=== PATIENT | female | born 1935 | race Caucasian/White ===

== ENCOUNTER 2017-08-24 09:29 | Inpatient (IN) ==
--- NOTE | 2017-08-24 12:52 | Diag Imaging Result Doc PS360 ---
ABDOMEN FLAT/UPRIGHT - 08/24/2017 INDICATION: abdominal pain, N V, cecal mass TECHNIQUE: Two views COMPARISON: Recent CT and PET scan FINDINGS: There are some borderline gaseous distended loops of small bowel in the mid abdomen measuring up to about 3 cm. There is some stool and a little bit of gas throughout the colon which otherwise appears normal. No free air. IMPRESSION: Abnormal but nonspecific small bowel bowel gas pattern. Similar to prior CTs. Electronically signed by Rodger Hill 08/24/2017 12:50 PM
--- NOTE | 2017-08-24 13:33 | PROVIDER DOCUMENTATION ---
This chart was entered by Gloria Mcconnell Scribe, acting as scribe for Luis Preciado MD. HPI-General Adult - General Chief Complaint: Abdominal Pain Stated Complaint: VOMITING Time Seen by Provider: 08/24/17 11:06 Source: family Allergies/Adverse Reactions: Patient Allergies Allergy/AdvReac Type Severity Reaction Status Date / Time propoxyphene HCl * Allergy Intermediate agitation Verified 08/24/17 11:51 [From Darvon] ramipril [From Altace] Allergy Intermediate HIVES Verified 08/24/17 11:51 Home Medications: Home Medication List Medication Instructions Recorded Confirmed Last Taken Type Aspirin 2 tab PO DAILY 06/11/15 08/24/17 08/17/17 08:00 History Furosemide [Lasix] 40 mg PO DAILY 06/11/15 08/24/17 08/24/17 08:00 History Irbesartan 150 mg PO HS 06/11/15 08/24/17 08/23/17 20:00 History Levothyroxine Sodium 75 mg PO DAILY 06/11/15 08/24/17 08/24/17 08:00 History Metoprolol Succinate 100 mg PO DAILY 06/11/15 08/24/17 08/24/17 08:00 History Mv,Calcium,Min/Iron/Folic/Vitk 1 tab PO DAILY 06/11/15 08/24/17 08/17/17 08:00 History [Multi For Her Tablet] [place]-3 Fatty Acids/Fish Oil [Fish 1 cap PO HS 06/11/15 08/24/17 08/17/17 20:00 History Oil 1,000 mg Softgel] SIMVAstatin [Zocor] 1 tab PO HS 06/11/15 08/24/17 08/23/17 20:00 History Hydrocodone/Acetaminophen 5 mg PO Q6HR PRN 08/24/17 08/24/17 08/24/17 08:00 History [Hydrocodon-Acetaminophen 5-325] Insulin NPH Hum/Reg Insulin Hm 16 unit SUBQ BID 08/24/17 08/24/17 08/24/17 08: 00 History [Relion Novolin 70-30 Vial] Iron Fum,Ps Cmp/Vit C/Niacin 3 mg PO DAILY 08/24/17 08/24/17 08/23/17 20:00 History [Integra Capsule] Omeprazole [Omeprazole] 40 mg PO DAILY PRN PRN 08/24/17 08/24/17 08/24/17 08:00 History Ondansetron Odt [Zofran Odt] 4 mg PO Q6HR 08/24/17 08/24/17 08/23/17 20:00 History Ranitidine [Zantac] 150 mg PO HS 08/24/17 08/24/17 08/23/17 20:00 History - History of Present Illness -Gen Adult Nature of Presenting Problems: Patient is an 82 year old female who presents in the ED with family with complaints of nausea/vomiting. Family states patient is under an oncologist's care due to a recently found mass near the patient's appendix, and states patient is scheduled for surgery on 09/02/17 but has to be evaluated by a pediatric ophthalmologist prior to having surgery (appointment with pediatric ophthalmologist on 08/29/17) . Family also states patient began having nausea/vomiting at 3:00 a.m. this morning, and states patient has continued to have nausea/vomiting despite taking Zofran. Family reports patient has also been constipated, last having a bowel movement on Tuesday, and reports patient takes Miralax daily but was given milk of magnesia last night and still has not had a bowel movement. Patient is also taking [place] frequently. Family denies patient having bloody vomit, diarrhea, and any other symptoms. Location of Pain/Injury: reports: abdomen Pain Radiation: reports: no radiation Quality of Pain: reports: aching Severity: reports: mild, moderate Onset/Duration: reports: abrupt, this morning Timing: reports: still present Context/Activities at Onset: reports: none Modifying Factors: improves with: nothing Associated Symptoms: reports: constipation, nausea, vomiting Similar Symptoms Previously?: Yes Recently seen or treated by another doctor?: Yes Review of Systems - Adult - REVIEW OF SYSTEMS - ADULT ROS:: ROS per family Constitutional: reports: no symptoms reported Eyes: reports: no symptoms reported Ears, Nose, Mouth & Throat: reports: no symptoms reported Cardiovascular: reports: no symptoms reported Respiratory: reports: no symptoms reported Gastrointestinal: reports: see HPI, abdominal pain, constipation, nausea, vomiting Genitourinary: reports: no symptoms reported Musculoskeletal: reports: no symptoms reported Integumentary: reports: no symptoms reported Neurological: reports: no symptoms reported Psychiatric: reports: no symptoms reported Endocrine: reports: no symptoms reported Hematologic/Lymphatic: reports: no symptoms reported Allergic/Immunologic: reports: no symptoms reported All Other Systems: Reviewed and Negative Past History - Adult - PAST MEDICAL HISTORY-ADULT Review of Records: reports: Nursing Assessment Review, Medications Reviewed Major Childhood Illnesses: reports: denies history Cardiovascular: reports: CHF, HTN, hyperlipidemia Respiratory: reports: denies history Gastrointestinal: reports: denies history Obstetrical/Gynecological: reports: denies history Genitourinary: reports: denies history Musculoskeletal: reports: denies history Neurological: reports: denies history Endocrine/Immune: reports: Diabetes, thyroid disorder Other Conditions: reports: denies history - PRIOR SURGERIES/PROCEDURES Surgical/Procedure History: reports: CABG - IMMUNIZATION STATUS Childhood Immunizations: See Nurse Assessment Flu Vaccine: See Nurse Assessment - FAMILY HISTORY Family History: reviewed, not pertinent - SOCIAL HISTORY Smoking: denies, non-smoker Substance Use: none/never Alcohol Use Frequency: never Living Situation: family Physical Exam-General - PHYSICAL EXAM-ADULT Initial Vital Signs Reviewed: Yes - CONSTITUTIONAL General Appearance: alert, no apparent distress - EYES Eyes: PERRL/EOMI, pink conjunctivae - HEAD, EARS, NOSE, MOUTH & THROAT HENMT: normocephalic/atraumatic - NECK Neck: full range of motion, supple - RESPIRATORY Respiratory: no pleuratic chest pain, no respiratory distress, no accessory muscle use - CARDIOVASCULAR Cardiovascular: no edema, no JVD - GASTROINTESTINAL (ABDOMEN) Abdominal Exam: no organomegaly, no pulsatile mass - LYMPHATIC Lymphatic: no adenopathy - MUSCULOSKELETAL Back Exam: normal inspection Extremity: normal range of motion, non-tender - SKIN Integumentary: normal color, normal turgor, warm/dry - NEUROLOGIC Neurologic: no motor/sensory deficits - PSYCHIATRIC Psych/Mental Status: normal mood/affect Progress - PLAN OF CARE/RESULTS Progress/Plan/Lab Results: Vital Signs - 8 hr 08/24/17 09:32 Temperature 97.9 F Pulse Rate 71 Respiratory Rate 16 Blood Pressure 146/65 O2 Sat by Pulse Oximetry 95 - XRAY 1 Impression: Abnormal (Abnormal but nonspecific small bowel gas pattern. Similar to prior CTs.) Comparison with other Films: no changes - CONSULTS/PCP/HOSPITALIST Notification #1 *Consult/PCP/Hospitalist*: Dr. Marx Time Discussed: 11:50 Reason/Comments: requests flat/upright xray of abdomen Departure - Departure Date of Disposition Decision: 08/24/17 Time of Disposition Decision: 13:30 DIAGNOSIS: Nausea & vomiting, Cecal neoplasm Disposition: ADMITTED INPATIENT 09 Certified Medical Emergency: Emergent Condition: Stable Referrals and Follow-Ups: Bhavani Garza MD [Primary Care Provider] - - Critical Care Note This patient required my direct & personal management of CC.: No Attestation - Physician/ ABELARDO Attestation Patient care was provided by Advanced Practice Provider:: No The physician spent face to face time with patient:: Yes Advanced Practice Provider documentation review:: Supervising physician onsite and consulted in the evaluation and care of this patient. The physician did have a face to face encounter with the patient. This chart was documented by the indicated scribe, (Gloria Mcconnell Scribe) and accurately reflects the services I performed and decisions made by me, Luis Preciado MD, as attested by the provider's signature.
[2017-08-24 13:57] LABS: MANUAL DIFF NEEDED? NO
[2017-08-24 13:57] LABS: URINE CULTURE NEEDED? NO; URINE MICRO REVIEW NEEDED? NO; URINE SOURCE CLEAN CATCH
[2017-08-24 13:58] LABS: ALBUMIN 3.3 g/dL (3.5-5.0); TOTAL BILIRUBIN 0.45 mg/dL (0.20-1.00); TOTAL PROTEIN 6.6 g/dL (6.3-8.3)
[2017-08-24 14:05] LABS: BASO% 0.2 % (0.0-0.8); EOS# 0.01 X1000 (0.0-0.7); EOS% 0.1 % (0.0-10.0); HEMATOCRIT 35.8 % (37.0-47.0); HEMOGLOBIN 11.1 g/dL (12.0-16.0); IMM GRAN# 0.02 X1000 (0.0-0.04); IMM GRAN% 0.2 % (0.0-0.5); LYMPH# 2.17 X1000 (1.2-3.4); LYMPH% 17.8 % (20.5-51.1); MCV 90.4 FL (81-99); MONO# 0.82 X1000 (0.11-0.59); MONO% 6.7 % (1.7-9.3); MPV 9.8 FL (7.4-10.4); PLT 391 X1000 (130-400); RBC 3.96 XMIL (4.2-5.4)
[2017-08-24 14:10] LABS: BILIRUBIN URINE NEGATIVE (NEGATIVE); BLOOD URINE NEGATIVE (NEGATIVE); COLOR YELLOW; GLUCOSE URINE NEGATIVE (NEGATIVE); LEUKOCYTES URINE NEGATIVE (NEGATIVE); NITRITE URINE NEGATIVE (NEGATIVE); PH URINE 5.5; PROTEIN URINE TRACE mg/dL (NEGATIVE); SP GRAVITY URINE 1.019; TURBIDITY URINE CLEAR (CLEAR); UROBILINOGEN URINE NORMAL (NORMAL)
[2017-08-24 14:12] LABS: UR EPITHELIAL CELLS <10 /HPF (<10); URINE BACTERIA NEGATIVE /HPF; URINE RBC <10 /HPF (<10); URINE WBC <10 /HPF (<10)
[2017-08-24] MEDS ORDERED: ZOFRAN IV ONE (14:19)
[2017-08-24] MEDS ORDERED: NS 1,000 ML IV SCH (15:50)
--- NOTE | 2017-08-24 16:00 | Diag Imaging Result Doc PS360 ---
EXAM: CHEST-PORTABLE HISTORY: dyspnea TECHNIQUE: Portable AP upright COMPARISON: None. FINDINGS: Sternal wires are present. The lungs are well expanded. The heart is not enlarged. The vessels are not distended. No pneumonia. No pleural effusions identified. IMPRESSION: Negative chest. Electronically signed by Ray Abrams 08/24/2017 3:58 PM
[2017-08-24] MEDS ORDERED: NS 1,000 ML ONE (16:28)
--- NOTE | 2017-08-24 16:34 | Diag Imaging Result Doc PS360 ---
EXAM: CT ABDOMEN/PELVIS W/O CONTRAST HISTORY: known mass, worsening pain TECHNIQUE: CT abdomen and pelvis without contrast. Dose reduction protocol. COMPARISON: 08/05/2017 FINDINGS: Interval development of a tiny right-sided pleural effusion measuring 13 mm posteriorly and inferiorly in the midline. There is a tiny nodule in the left lung base similar to the prior study. No calcified gallstones or adjacent inflammation. Normal noncontrasted liver, spleen, and pancreas. Normal adrenal glands. There is cortical thinning to the kidneys. No renal stones. No hydronephrosis. No aortic aneurysm. Prominent atherosclerosis. Mild distention to the small bowel loops. There is stool in the proximal colon. There are prominent lymph nodes and inflammation at the ileocecal junction. The appendix remains distended although it is less pronounced than on the prior exam. There is equalized contents in the distal small bowel. The uterus is small. There are distal colonic diverticula. Urinary bladder is not distended. IMPRESSION: 1. Interval worsening in the small bowel dilatation with possible malignancy at the ileocecal junction. The appendix is dilated although it is less pronounced than on the prior exam. No abscess. Inflammation in the right lower quadrant with prominent mesenteric nodes persist. 2. Development of a small right pleural effusion Electronically signed by Ray Abrams 08/24/2017 4:32 PM
--- NOTE | 2017-08-24 16:35 | EKG Report ---
Test Performed on : 08/24/2017 2:14:36 PM Test Reason : VOMITING/ABD PAIN Blood Pressure : / mmHG Vent. Rate : 062 BPM Atrial Rate : 062 BPM P-R Int : 180 ms QRS Dur : 080 ms QT Int : 444 ms P-R-T Axes : 074 -16 037 degrees QTc Int : 450 ms Normal sinus rhythm. Inferior infarct , age undetermined Cannot rule out Anterior infarct , age undetermined Abnormal ECG No previous ECGs available Unconfirmed Result
--- NOTE | 2017-08-24 17:38 | CONSULTATION ---
DATE OF CONSULTATION: 08/24/2017 INDICATION: Preoperative evaluation prior to upcoming abdominal surgery. HISTORY OF PRESENT ILLNESS: Ms. Castro is an 82-year-old, white female with a history of coronary disease and coronary bypass grafting in 2003. The patient apparently had an inferior myocardial infarction in 2003, treated with lytics, and had persistent pain. She was subsequently taken to the catheterization lab and found to have multi-vessel disease, and coronary bypass grafting was performed. She has followed with Dr. Garcia in the interim, last seeing him in 2010. The patient has been under evaluation by her primary care physician, as well as Dr. Marx, and, in the recent past, has been found to have a mass at the ileocecal junction. The patient was at home, in her usual state of health, and this morning began having some abdominal discomfort with multiple episodes of emesis. Apparently, the abdominal discomfort has been going on for a week or more. The patient is an extremely poor historian, and carries a diagnosis with some level of dementia. She apparently is able to tolerate p.o. intake. She has not had a bowel movement in around a week. There have been no issues with orthopnea. She is lying flat in bed. She does have some mild lower extremity edema. She has no complaints of chest pain presently. She is minimally active at home. She essentially uses a walker for minimal ambulation around her residence at [place]. PAST MEDICAL HISTORY: Significant for: 1. Coronary bypass grafting. This was performed in 2004. At that time, there was a REAL-to-LAD vein graft and diagonal vein graft to posterior lateral branch. Most recent ejection fraction was in the high-50s by echocardiogram in 2007. 2. Mild bilateral carotid disease. 3. Hypertension. 4. Hyperlipidemia. 5. Diabetes mellitus. 6. Hyperthyroidism. 7. History of chronic kidney disease. SOCIAL HISTORY: She is currently a resident at [place]. No tobacco or alcohol use. FAMILY HISTORY: Significant for hypertension. REVIEW OF SYSTEMS: A 10-system review of systems was unable to be obtained. The patient, unfortunately, carries a level of dementia and currently is not able to answer many questions. PHYSICAL EXAMINATION: Vital signs: She is afebrile. Heart rate is 62, blood pressure 155/56. She weighs 230 pounds, but that is a subjective weight. general: She is in no acute distress. HEENT: Oropharynx is moist. She is essentially edentulous. Eye examination has pink conjunctivae. White sclerae. Neck: Examination shows no obvious thyromegaly or thyroid tenderness. Cardiovascular: She is in a regular rate and rhythm. She has no murmurs. She has no S3. She has trace bilateral lower extremity edema, with warm and well-perfused lower extremities. Chest: Clear, with poor inspiratory effort. Abdomen: Soft. There is mild, diffuse tenderness to palpation. No rebound no guarding Skin Exam: Warm and dry throughout, without any rashes. Neurological: Moving all extremities well. Cranial nerves 2 through 12 are intact, without any sensation deficits. Psychiatric: She is awake. She is conversive. She gives a somewhat limited history. PERTINENT DATA: White count 12.1, hematocrit 36, platelet count 391,000. Sodium 137, potassium is 5, BUN 21, creatinine 1.6, albumin level is 3.3. Urinalysis was reviewed. Her electrocardiogram demonstrates a sinus rhythm. Criteria for inferior infarct is not sufficient. She has no acute ischemic changes. Abdomen and pelvis CT was reviewed, demonstrating small bowel dilatation with possible malignancy at the ileocecal junction. Appendix was dilated, but seems less pronounced than the prior exam. No abscess was seen. Small right-sided pleural effusion. Chest x-ray demonstrated no acute abnormalities. ASSESSMENT: 1. Ileocecal mass, concerning for possible malignancy. 2. History of coronary disease. PLAN: The patient is high risk by the revised cardiac risk index, with a greater than 11% risk of major adverse cardiac events in the perioperative period. We will check an echocardiogram. I will evaluate her with a BNP as well. We will check an EKG in the morning. Unfortunately, the patient has some urgency for proceeding to an operative intervention. She is not having any unstable cardiac conditions presently, and considering no issues with chest pain, I would be hesitant to pursue stress testing in this patient, as I do not think it would greatly affect our outcome. For now, we will proceed with an echocardiogram and a BNP. We will try to adjust medicines. Certainly, the patient would benefit from continuation of the beta-lyle in the perioperative period. cc: Storm Kwon MD
[2017-08-24] MEDS: HUMALOG SUBQ SCH ×2 (18:17→21:25)
--- NOTE | 2017-08-24 18:17 | HISTORY AND PHYSICAL ---
PRELOAD SUPERVISOR: Dr. Mccartney in [place]. CHIEF COMPLAINT: Abdominal pain. HISTORY OF PRESENT ILLNESS: Mrs. Castro is a pleasant, 82-year-old, female, with a history of CAD, SC, type 2 diabetes, CKD and hypertension, who presents to our facility with abdominal pain. She was diagnosed a few weeks back with intra-abdominal tumor , and has been followed by Dr. Marx. There are plans for surgery on September 02; however, the patient's pain has worsened and she was instructed to come to the ER. She has not really been able to eat, she has not had any bowel movements, and is not passing any flatus. There is no fever or chills. No vomiting. The patient, herself, is unable to give a reliable history. Secondary to history of dementia. Son and daughter at the bedside are able to answer detailed questions. She has a cardiac history, but has not seen a acid cleaner in about 3 or 4 years. She does report that she has chronic lower extremity edema, shortness of breath, orthopnea and occasional chest pain. Dr. Marx's plan was to have the patient preoperatively cleared from a cardiac standpoint prior to elective surgery. At any rate, when she came to the hospital today, she had labs and diagnostics done. She is noted to have a white count of 12.18, mildly anemic, and a creatinine of 1.6. Otherwise, negative. Vital signs are stable. She is going to be admitted for further treatment and evaluation. PAST MEDICAL HISTORY: 1. CAD, status post SC. 2. Type 2 diabetes. 3. CKD. 4. Hypertension. 5. Hyperlipidemia. SURGICAL HISTORY: She has had a CABG. SOCIAL HISTORY: She denies tobacco, alcohol, or drug use. She lives alone, was strong family support. She is . FAMILY HISTORY: Noncontributory. REVIEW OF SYSTEMS: Unable to obtain. HOME MEDICATIONS: Aspirin 162 mg daily, Lasix 40 mg daily, Sasser 5 every 6 hours as needed for pain, NPH insulin 16 units b.i.d., irbesartan 150 mg at bedtime, Integra 1 daily , Synthroid 75 mcg daily, metoprolol succinate 100 mg daily, multivitamin 1 daily, omeprazole 40 mg daily, Zofran 4 mg every 6 hours, Zantac 150 mg p.o. at bedtime, Zocor 40 mg p.o. at bedtime. ALLERGIES: Propoxyphene, ramipril. PHYSICAL EXAMINATION: VITAL SIGNS: Blood pressure is 155/56, heart rate 62, respiratory rate 18, O2 saturation 99% on room air, temperature is 97.9 degrees. GENERAL: Morbidly-obese, female, lying in hospital bed. No acute distress. NEUROLOGIC: The patient is awake and alert, but confused. She follows commands without focal deficits. HEENT: Head is atraumatic, normocephalic. Her pupils are equal, round, reactive to light. Oral mucosa is moist. NECK: Trachea is midline. No JVD. CHEST: Diminished at the bases, but clear. CARDIOVASCULAR: Regular rate and rhythm. S1 and S2 noted. GASTROINTESTINAL: Diffusely tender and slightly distended. No rigidity. Bowel sounds are hypoactive. EXTREMITIES: There is 2+ pitting edema bilaterally. Pulses 1+. DIAGNOSTIC DATA: Abdomen x-ray does not show anything acute. WBC 12.18, hemoglobin 11.1, hematocrit 35.8, platelet count 391,000. Sodium 137, potassium 5, chloride 96, CO2 36, anion gap 11, BUN 21, creatinine 1.6, glucose 173, calcium is 9, AST 24, ALT 11, alkaline phosphatase 115, albumin 3.3, lipase is 9. UA is negative. ASSESSMENT AND PLAN: 1. Abdominal pain, with known history of ileocecal mass: Dr. Marx has been consulted. We will keep the patient n.p.o., and continue light IV fluids and pain medication, as well as antiemetics. We will order a CT of the abdomen and pelvis with oral contrast only, and monitor. 2. History of coronary artery disease: The patient will need preoperative clearance. She has not seen a acid cleaner in some time, and she is having symptoms that are, at least in part, consistent with congestive heart failure. We are going to order an echocardiogram and consult Cardiology. We will keep her on telemetry as well. 3. Nzvip-oh-etaxxcr kidney disease: Creatinine 1.6. It looks like her baseline is around 1.3. We will hold any nephrotoxins for now, and check urine electrolytes and monitor. She is followed by Dr. Medellin in [place]. 4. Diabetes mellitus: Add hemoglobin A1c in the morning and pattern sugars, sliding-scale insulin. 5. Deep vein thrombosis prophylaxis with heparin. Further recommendations to follow. Patient seen and examined by me face to face, lab work, vitals signs and images were reviewed, on my physical exam she is having abdominal pain to palpation, she is also confused, she probably has a high risk for surgery, I will talk to the family about hospice or palliative care when appropriate, I agree with the VEHICLE DELIVERY WORKER's assessment and plan, Jose Tomlin MD Dictated by NEIL Clancy for Jose Bright MD cc: NEIL Clancy MD Steven Cowart MTDD
[2017-08-24] MEDS: ZOSYN 2.25 GM in NS 50 ML IV SCH ×2 (19:36→23:24)
--- NOTE | 2017-08-24 20:04 | CONSULTATION ---
DATE OF CONSULTATION: 08/24/2017 REQUESTING PHYSICIAN: The hospitalist service. REASON FOR CONSULTATION: Consult is concerning cecal mass. HISTORY OF PRESENT ILLNESS: An 82-year-old, female, known to me from being seen recently in the office for cecal cancer. We had scheduled her surgery, but she presented to the ER with nausea, vomiting and inability to have a bowel movement. She has had some chronic obstructive like symptoms, likely from the cecal mass and got to a breaking point. She was admitted and underwent a CT scan that showed no significant changes from her previous one, but given her nausea and vomiting, she was admitted. She does have significant past medical history and she is currently being evaluated by cardiology. PAST MEDICAL HISTORY: History of anemia. History of diabetes mellitus, history of gastroesophageal reflux disease. History of hypertension. History of hypercholesterolemia. History of chronic kidney disease. History of myocardial infarction. History of stroke. History of thyroid disease. PAST SURGICAL HISTORY: Includes coronary artery bypass graft, 3 vessel. MEDICATIONS: Hydrocodone, Lasix, omeprazole, simvastatin, ranitidine, MiraLAX, Zofran, metoprolol, Synthroid, insulin. FAMILY HISTORY: Positive for breast cancer, anemia, colon cancer, diabetes, hypertension, hypercholesterolemia, seizure disorder. SOCIAL HISTORY: Lives at home. Denies alcohol, tobacco or illicit drugs. ALLERGIES: Ramipril, propoxyphene. REVIEW OF SYSTEMS: Difficult to obtain secondary to patient's underlying dementia. PHYSICAL EXAMINATION: Vital Signs: Patient is currently afebrile. Her vital signs are stable. General: No acute distress. Resting comfortably in bed. Mildly interactive female, looks stated age. HEENT: Normocephalic, atraumatic. Pupils equal, round, react to light. Mucous membranes moist. Oropharynx benign. Neck: Supple. Trachea midline. Cardiovascular: Regular rate and rhythm. Lungs: Grossly clear. Abdomen: Soft, obese, but nontender. Extremities: Edema noted to bilateral lower extremities. Vascular: All extremities perfused. Neurologic: Some baseline dementia. Skin: No signs of jaundice. LABORATORY: White blood cell count is 12, there appears to be no left shift. Remainder of labs reviewed. Of note, patient's creatinine is 1.6. CT scan independently reviewed and radiology report reviewed. She does have slight worsening of bowel distention with less prominent dilation of the appendix. 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 1. Multiple medical comorbidities. At this time, she is being evaluated by Cardiology. Will likely need a risk stratification for any kind of surgical intervention. There is potential she might have underlying congestive heart failure, although this has not been clinically diagnosed. We will follow up with their recommendations. Her overall medical condition is being managed by the hospitalist service. 2. Cecal cancer. At this time, may be causing a chronic low-grade obstruction. At this time, we will keep her on bowel rest. She will probably need to at least take MiraLAX twice a day. If she is deemed a safe surgical candidate, may consider surgical intervention, but at this time, we will continue current management. I appreciate the consult. cc: Rico Marx MD
[2017-08-24] MEDS ORDERED: HUMULIN R SUBQ SCH (21:00)
[2017-08-25] MEDS: MORPHINE IV PRN ×2 (02:47→14:20)
[2017-08-25] MEDS: ZOSYN 2.25 GM in NS 50 ML IV SCH ×4 (04:53→23:46)
[2017-08-25] MEDS: HUMALOG SUBQ SCH ×4 (06:23→21:23)
--- NOTE | 2017-08-25 06:36 | PROGRESS NOTE ---
DATE: 08/25/2017 SUBJECTIVE: Patient is about the same. Discussed with the daughter. She did have some episodes of pain. The patient is resting comfortably now. OBJECTIVE: Vital Signs: Patient is currently afebrile. Her vital signs appear to be stable. General: No acute distress, resting comfortably. female, looks stated age. HEENT: Normocephalic, atraumatic. Pupils equal, round, react to light. Mucous membranes moist. Oropharynx benign. Neck: Supple. Trachea midline. Cardiovascular: Regular rate and rhythm. Lungs: Grossly clear. Abdomen: Soft, obese. At this time, I cannot get any tenderness out of palpation to wake her up, but difficult to exam given patient's mental status. Extremities: Some swelling noted bilaterally. Neurologic: The patient does have baseline dementia. Skin: No signs of jaundice. Vascular: All extremities perfused. LABORATORY: From this morning pending. 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 1. Multiple medical comorbidities. At this time, she has an echo pending. Cardiology is following her. She also has a brain natriuretic peptide scheduled for today. We will need to follow up with those results to make a good risk stratification for the patient for any surgery. 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 We will continue supportive care at this point and continue to monitor. cc: Rico Marx MD
[2017-08-25 07:16] LABS: HEMATOCRIT 30.6 % (37.0-47.0); HEMOGLOBIN 9.6 g/dL (12.0-16.0); MCH 28.9 PG (27-31); MCHC 31.4 g/dL (33-37); MCV 92.2 FL (81-99); MPV 9.2 FL (7.4-10.4); RBC 3.32 XMIL (4.2-5.4)
[2017-08-25 07:31] LABS: AGAP 8; BUN 23 mg/dL (8-22); CALCIUM 8.5 mg/dL (8.8-10.2); CHLORIDE 99 mmol/L (98-107); COSMO 281; HDL 32 mg/dL (45-65); IRON SATURATION 26 %; LDL 55 mg/dL; POTASSIUM 4.4 mmol/L (3.5-5.1); SODIUM 138 mmol/L (136-145); TCO2 31 mmol/L (25-35); TIBC 141 ug/dL; TOTAL IRON 37 ug/dL (49-151); TRIGLYCERIDES 113 mg/dL (35-135); UNBOUND IRON 104 ug/dL (112-346); VLDL 23 mg/dL
[2017-08-25] MEDS ORDERED: DULCOLAX PR ONE (08:32)
--- NOTE | 2017-08-25 13:53 | PROGRESS NOTE ---
DATE: 08/25/2017 SUBJECTIVE: This patient was lying comfortably in bed. She has abdominal distention, mild discomfort, mostly at the level of the lower abdomen. Family members at the bedside, her daughter. All the situation has been explained and the prognosis. She is not a good candidate for surgery. Cardiology Department on board. OBJECTIVE: Vital Signs: Temperature 97.9 degrees, pulse 63, respiratory rate 17, blood pressure 147/49, oxygen saturation 97% on room air. HEENT: Head normocephalic. No trauma. PERRLA. Neck: Supple. No JVD. No masses. Central trachea. Chest: Clear to auscultation. No wheezing. No rales. Abdomen is soft, protuberant, and mildly distended. Tender to palpation at the level of the lower abdomen. Positive bowel sounds. Extremities: No edema. No clubbing. No cyanosis. Neurologic: The patient is alert. She is oriented x1. She is able to recognize her family members at the bedside and follow commands. LABORATORY: WBC 9.6, hemoglobin 9.6, hematocrit 30.6, platelets 331,000. Sodium 138, potassium 4.4, chloride 99, bicarbonate 31. BUN 23, creatinine 1.6, glucose 123. Calcium 8.5, hemoglobin A1c 6, glucose 123. BNP 1982. ASSESSMENT AND PLAN: 1. Abdominal pain with known history of ileocecal mass. Surgery Department has been following this patient. Probably, this patient will end up with colectomy or ileostomy. 2. History of coronary artery disease. This patient will need preoperative clearance. Cardiology Department following this patient closely. This patient has a high risk for surgery. 3. Ectuy-he-gwdbzrb kidney disease. Creatinine is 1.6. We will avoid any nephrotoxic medication. We will continue to monitor. 4. Type 2 diabetes. Hemoglobin A1c is good. We will continue with the sliding scale insulin and pattern of blood sugar. 5. Deep vein thrombosis prophylaxis with heparin. cc: Jose Bright MD
--- NOTE | 2017-08-25 15:42 | ECHO REPORT ---
ORDER DATE: 08/25/2017 INDICATIONS: Shortness of breath, lower extremity edema, and history of coronary disease. FINDINGS: 1. Right atrium appears normal in size. 2. Mild tricuspid regurgitation. RV systolic pressure of 40. 3. Normal RV size and systolic function. 4. No significant pulmonic insufficiency. 5. Normal left atrial size at 3.8 cm. 6. No mitral prolapse. Trace mitral regurgitation. 7. Normal left ventricular size, end-diastolic dimension of 4 cm. Likely normal LV wall thicknesses. Do not believe there is a significant degree of LV hypertrophy. LV systolic function is normal to hyperdynamic. The estimated ejection fraction is greater than 70%. No segmental wall motion abnormalities identified with Definity echo contrast. 8. Aortic valve opens well. There is mild aortic insufficiency. The valve is trileaflet. 9. Aorta appears normal in visualized segments. 10. No pericardial effusion seen. cc: Storm Kwon MD
--- NOTE | 2017-08-25 15:57 | PROGRESS NOTE ---
DATE: 08/25/2017 SUBJECTIVE: Ms. Castro has had some trouble with headache today. The patient is not interactive with the examiner today. She is sleeping. The family reports; otherwise, she has been doing well. No emesis. PHYSICAL EXAMINATION: Vital signs: Afebrile. Heart rate is 63, blood pressure 147/49. I Os are poorly documented. General Appearance: Generally, she is in no acute distress. Cardiovascular: She is in a regular rate and rhythm. She has no murmurs. No S3. Trace bilateral lower extremity edema. Chest Examination: Sounds clear bilaterally. She has no increased work of breathing. Abdomen: Soft, nontender, nondistended. No obvious organomegaly. ASSESSMENT: 1. History of coronary disease. 2. Ileocecal mass. PLAN: The patient seems to be doing well from a cardiovascular standpoint. Her echocardiogram today shows a normal ejection fraction. She does not seem to have any acute cardiovascular indications or contraindications to going through the proposed surgery. Notably, she has a high risk patient regardless. She has no evidence of active heart failure undergoing. I have re- initiated her irbesartan at 150 mg daily. I have asked the nurses to address the patient's current NPO status with Dr. Marx, to see if needs to continue or not. cc: Storm Kwon MD
[2017-08-25 16:16] LABS: INR 0.96
[2017-08-26] MEDS: ZOSYN 2.25 GM in NS 50 ML IV SCH (04:06)
[2017-08-26] MEDS: HUMALOG SUBQ SCH (06:28)
[2017-08-26 06:44] LABS: HEMATOCRIT 30.5 % (37.0-47.0); HEMOGLOBIN 9.3 g/dL (12.0-16.0); MCH 28.4 PG (27-31); MCHC 30.5 g/dL (33-37); MCV 93.3 FL (81-99); MPV 9.2 FL (7.4-10.4); RBC 3.27 XMIL (4.2-5.4)
[2017-08-26 07:20] LABS: CALCIUM 8.5 mg/dL (8.8-10.2); POTASSIUM 4.4 mmol/L (3.5-5.1)
--- NOTE | 2017-08-26 07:43 | PROGRESS NOTE ---
DATE: 08/26/2017 SUBJECTIVE: Discussed her case with Dr. Storm Kwon with Cardiology. She is likely going to be high risk. Her echo is with the ejection fraction is actually normal. Though, her BNP is slightly elevated. This might be related to her overall clinical status and less to do with congestive heart failure. At this time, patient is having bowel movements. Had a lengthy discussion with the family about options and expectations. She likely has a poor prognosis. Regardless of the route we pursue, the options would include a right hemicolectomy, but I suspect that would be a difficult operation for her to recover from, but not unreasonable. Second one would be diverting loop ileostomy for palliation. Again, that would not be addressing underlying malignancy, but she might tolerate it better than the hemicolectomy. The family is going to decide what to do. The patient seemed to be doing okay otherwise. OBJECTIVE: Vital Signs: Patient is currently afebrile. Her vital signs have been stable. General: No acute distress, resting comfortably. female, looks stated age. HEENT: Normocephalic, atraumatic. Pupils equal, round, reactive to light. Mucous membranes moist. Oropharynx benign. Neck: Supple. Trachea midline. Cardiovascular: Regular rate and rhythm. Lungs: Grossly clear. Abdomen: Soft, obese. Cannot get any kind of tenderness at this time. Neurologic: The patient does have some baseline dementia. Skin: No signs of jaundice. Vascular: All extremities perfused. LABORATORY: Pending. 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 1. Multiple medical comorbidities. At this time, being evaluated and followed by the Cardiology and hospitalist. Will defer to them. 2. 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 At this time, she probably has some degree of low-grade chronic obstruction. But I think she is moving things through. She could easily go home with liquid diet with Ensure and have MiraLAX twice a day. I think she is opening up, and she is not completely obstructed. She is tentatively scheduled to have surgery, September 02. So we could potentially just discharge and have her come back in. I did have a lengthy discussion as noted above with the family about expectations and options of full right hemicolectomy versus palliative loop colostomy. They are going to talk about it again as a family and make a decision. In the meantime again, it is feasible for her to potentially be discharged home on a liquid diet with MiraLAX twice a day, and have her follow up with the previously scheduled surgery. cc: Rico Marx MD
[2017-08-26 08:42] VITALS: BP 142/51
[2017-08-26] MEDS ORDERED: AVAPRO PO SCH (09:00)
[2017-08-26] MEDS ORDERED: MIRALAX PO SCH (21:00)
--- NOTE | 2017-08-27 06:55 | DISCHARGE SUMMARY ---
ADMISSION DATE: 08/24/2017 DISCHARGE DATE: 08/26/2017 CONSULTATIONS: 1. Rico Marx MD with General S. 2. Storm Kwon MD with Cardiology. PERTINENT PROCEDURES: 1. Abdominal x-ray. Findings: Abdominal, but nonspecific small bowel gas pattern, similar to prior CT's. 2. Abdomen and pelvis CT: Findings Interval worsening and small-bowel dilatation with possible malignancy at the ileocecal junction. The appendix is dilated, although it is less pronounced than on prior exam. No abscess. Development of small right pleural effusion. 3. Chest x-ray. Findings: Negative chest. 4. Echocardiogram. Mild tricuspid regurgitation. Estimated EF is greater than 70%. Mild aortic insufficiency. DISCHARGE DIAGNOSES: 1. Ileocecal mass. The patient will go home with a liquid diet with Ensure and MiraLAX b.i.d. She is tentatively scheduled for surgery on 09/02/2017. 2. Coronary artery disease. Echo shows normal ejection fraction. She does not seem to have any acute cardiovascular indications or contraindications to going through proposed surgery. She is a high-risk patient regardless. We will continue irbesartan. 3. Acute on chronic kidney disease. Avoid nephrotoxic medications. 4. Diabetes mellitus type 2. Continue home medications. HOSPITAL COURSE: Mrs. Castro is an 82-year-old female, with a past medical history of coronary artery disease, myocardial infarction, type 2 diabetes, chronic kidney disease, and hypertension, who came to the emergency room for abdominal pain. She was diagnosed a few weeks back with intra-abdominal tumor and has been followed by Dr. Marx. Their are plans for surgery on September 02; however, the patient's pain has worsened and she was instructed to come to the emergency room. She states that she has not been able to the eat and she has not had any bowel movements and is not passing any flatus. Dr. Marx with General Surgery and Dr. Kwon with Cardiology were consulted. Dr. Marx discussed her case with Dr. Kwon with Cardiology. She is a high-risk patient. Her echo shows that her ejection fraction is actually normal, though her B- type natriuretic peptide is slightly elevated. Dr. Marx had a lengthy discussion with the family about options and expectations, telling them that she likely has a poor prognosis. He spoke with them about their options, which would include a right hemicolectomy, which he thought would be a difficult operation for her to recover from but it is not unreasonable. The second option would be a diverting loop ileostomy for palliation. Again, that would not be addressing underlying malignancy, but she might tolerate that better than the hemicolectomy. Dr. Marx believes that the patient had some degree of a low-grade chronic obstruction. He states that she could go home with liquid diet with Ensure and have MiraLAX twice a day. He thinks that she is opening up and is not completely obstructed. She is tentatively scheduled to have surgery on 2016. So, he plans to discharge her home and have her come back in. The family is going to talk about which surgery they would like to proceed with. In the meantime, the patient will go home on a liquid diet and MiraLAX twice a day, and followup with the previously scheduled surgery. DISCHARGE VITAL SIGNS: Temperature 97.5 degrees, heart rate 58, respiratory rate 18. Blood pressure 142/51, 97% on room air DISCHARGE DIET: Liquid diet with Ensure and MiraLAX b.i.d. DISCHARGE MEDICATIONS: 1. Aspirin 81 mg, two tabs p.o. daily. 2. Lasix 40 mg p.o. daily. 3. Hydrocodone/acetaminophen 5 mg p.o. q.6. 4. Regular insulin 16 units subcutaneously b.i.d. 5. Irbesartan 100 mg p.o. at bedtime. 6. Integra 3 mg p.o. daily. 7. Synthroid 75 mcg p.o. daily. 8. Metoprolol 100 mg p.o. daily. 9. Multivitamin one tab p.o. daily. 10. Fish oil, one capsule p.o. at HS. 11. Omeprazole 40 mg p.o. daily. 12. Zofran 4 mg p.o. q.6 hours. 13. MiraLAX 17 g p.o. b.i.d. 14. Zantac 150 mg p.o. at bedtime. 15. Simvastatin 40 mg p.o. at bedtime. FOLLOWUP: The patient had surgery with Dr. Marx as scheduled for 09/02/2017. She will also need to followup with Cardiology. Time discharging this patient: 35 minutes Dictated by NEIL Corado for Jose Bright MD cc: MD Rico Cruz MD Peter Johnson, MD [facility]PITALEirca
--- NOTE | 2017-09-02 14:13 | ED EKG INTERP ---
This chart was entered by Gloria Mcconnell Scribe, acting as scribe for Luis Preciado MD. EKG Interpretation - EKG Time of EKG reading by physician:: 14:34 EKG Read and Signed by:: Luis Preciado EKG Interpretation (*Must complete 3 of following elements*): Abnormal ( inferior infarct, age undetermined cannot rule out anterior infarct, age undetermined) Rate: 62 Rhythm: normal sinus rhythm Attestation - Physician/ ABELARDO Attestation Patient care was provided by Advanced Practice Provider:: No The physician spent face to face time with patient:: Yes Advanced Practice Provider documentation review:: Supervising physician onsite and consulted in the evaluation and care of this patient. The physician did have a face to face encounter with the patient. This chart was documented by the indicated scribe, (Gloria Mcconnell Scribe) and accurately reflects the services I performed and decisions made by me, Luis Preciado MD, as attested by the provider's signature.
== END 2017-08-26 12:28 | disposition home health service (06) ==
LOC: ED 09:29 → 3N 15:41
PROVIDERS: ATTEND Internal Medicine